=== PATIENT | female | born 1960 | race Caucasian/White ===

== ENCOUNTER 2020-08-02 10:16 | Emergency (ER) | payer BC ==
[~2020-08-02] VITALS: Ht 175.3 cm; Wt 89.4 kg
[2020-08-02 10:26] VITALS: BP_SYST 111
[2020-08-02 13:12] VITALS: BP_SYST 111
== END 2020-08-02 13:12 | disposition home or self-care (01) ==
LOC: SED 10:16
DX: M25.552 Pain in left hip (principal)
CPT/HCPCS: 72100-TC; 72170-TC; 73502; 93971; 99284

== ENCOUNTER 2022-05-11 13:30 | Emergency (ER) | payer BC ==
[~2022-05-11] VITALS: Ht 172.7 cm; Wt 93.0 kg
[2022-05-11 13:46] VITALS: BP_SYST 136
--- NOTE | 2022-05-11 15:06 | NUR ---
Pt brought by self, A&Ox4, pt presents to ER with pain and burning with urination ,pt taking Bactrim DM but symptoms not improving, skin pink and warm, cap refill <3.
--- NOTE | 2022-05-11 15:21 | NUR ---
Dr. Espinosa in triage examining patient
[2022-05-11 15:45] LABS: BASOPHILS # (AUTO) 0.1 K/uL (0.0-0.2); BASOPHILS % (AUTO) 1.5 % (0.0-2.0); EOSINOPHILS # (AUTO) 0.2 K/uL (0.0-0.4); EOSINOPHILS % (AUTO) 1.7 % (0.0-4.0); HEMATOCRIT 36.2 % (36-48); LYMPHOCYTES # (AUTO) 2.1 K/uL (1.0-5.5); LYMPHOCYTES % (AUTO) 23.5 % (20.5-51.5); MEAN CORPUSCULAR HEMOGLOBIN 28 pg (27-31); MEAN CORPUSCULAR HGB CONC 33 % (32-36); MEAN CORPUSCULAR VOLUME 84 fL (79.0-98.0); MONOCYTES # (AUTO) 0.5 K/uL (0.0-1.0); MONOCYTES % (AUTO) 6.2 % (1.7-9.3); NEUTROPHILS # (AUTO) 5.8 K/uL (1.8-7.7); NEUTROPHILS % (AUTO) 67.1 % (40.0-70.0); PLATELET COUNT (AUTO) 273 K/uL (130-430); RED BLOOD CELL COUNT(AUTO) 4.33 MIL/uL (4.2-6.2); RED CELL DISTRIBUTION WIDTH 15.4 % (9.0-15.0); WHITE BLOOD COUNT (AUTO) 8.7 K/uL (4.8-10.8)
[2022-05-11] MEDS ORDERED: NITR-85 PO (15:56)
--- NOTE | 2022-05-11 16:12 | NUR ---
Patient given written and verbal discharge instructions and verbalizes understanding. ER MD discussed with patient the results and treatment provided. Patient in stable condition. ID arm band removed. Rx of Macrobid given. Patient educated on pain management and to follow up with PMD. Pain Scale 2/10. Opportunity for questions provided and answered. Medication side effect fact sheet provided.
[2022-05-11 16:14] VITALS: BP_SYST 136
[2022-05-11 16:15] LABS: ANION GAP 8 (5-15); CALCIUM 8.8 mg/dL (8.4-11.0); CHLORIDE 103 mmol/L (98-107); CREATININE 1.09 mg/dL (0.55-1.30); GLUCOSE 115 mg/dL (70-99); UREA NITROGEN, BLOOD 16 mg/dL (8-21)
[2022-05-11 16:18] LABS: GFR AFRICAN AMERICAN 66 mL/min (>90)
[2022-05-11 16:19] LABS: ALANINE AMINOTRANSFERASE 25 U/L (12-78); ALBUMIN 3.8 g/dL (3.4-4.8); AMYLASE 39 U/L (0-100); ASPARTATE AMINOTRANSFERASE 12 U/L (10-37); LIPASE 173 U/L (73-393); TOTAL BILIRUBIN 0.4 mg/dL (0.0-1.0)
[2022-05-11 16:28] LABS: C-REACTIVE PROTEIN QUANT < 0.2 mg/dL (0-0.5)
== END 2022-05-11 16:12 | disposition home or self-care (01) ==
LOC: SED 13:30
DX: N39.0 Urinary tract infection, site not specified (principal); R30.0 Dysuria; R35.0 Frequency of micturition; M54.50 Low back pain, unspecified; Z79.899 Other long term (current) drug therapy
CPT/HCPCS: 36415; 80053; 82150; 83605; 83690; 84703; 85025; 86140; 99283